=== PATIENT | female | born 1960 | race Caucasian/White ===

== ENCOUNTER 2020-08-31 13:44 | Emergency (ER) | payer SELFPAY ==
[~2020-08-31] VITALS: Ht 162.6 cm; Wt 63.5 kg
[2020-08-31] MEDS ORDERED: Ibuprofen600 MG PO (14:53)
== END 2020-08-31 15:09 | disposition home or self-care (01) ==
LOC: ER 13:44
DX: M25.511 Pain in right shoulder (principal); G89.29 Other chronic pain; F17.200 Nicotine dependence, unspecified, uncomplicated; W01.0XXA Fall on same level from slipping, tripping and stumbling without subsequent striking against object, initial encounter
CPT/HCPCS: 73030; 99283-25

== ENCOUNTER 2021-10-31 12:20 | Emergency (ER) | payer OTHER ==
[~2021-10-31] VITALS: Ht 157.5 cm; Wt 68.0 kg
[~2021-10-31 12:20] MED LIST: Ibuprofen600 MG PO
[2021-10-31] MEDS ORDERED: IBUP800 PO (13:48)
== END 2021-10-31 14:01 | disposition home or self-care (01) ==
LOC: ER 12:20
DX: M79.621 Pain in right upper arm (principal); W10.8XXA Fall (on) (from) other stairs and steps, initial encounter; F17.200 Nicotine dependence, unspecified, uncomplicated
CPT/HCPCS: 73060; 99283-25